=== PATIENT | female | born 1975 | race Caucasian/White ===

== ENCOUNTER 2023-07-11 16:44 | Emergency (ER) | payer OTHER ==
[~2023-07-11] VITALS: Wt 75.7 kg
[2023-07-11] MEDS ORDERED: HYDROCODONE-AC1 EAC1 PO (21:25)
== END 2023-07-11 21:43 | disposition home or self-care (01) ==
LOC: ED 16:44
DX: S82.045A Nondisplaced comminuted fracture of left patella, initial encounter for closed fracture (principal); M25.571 Pain in right ankle and joints of right foot; X50.1XXA Overexertion from prolonged static or awkward postures, initial encounter; Y93.01 Activity, walking, marching and hiking; Y92.89 Other specified places as the place of occurrence of the external cause; Y99.8 Other external cause status